=== PATIENT | female | born 1975 | race Caucasian/White ===

== ENCOUNTER 2023-04-26 01:21 | Emergency (ER) | payer MEDICAID ==
[~2023-04-26] VITALS: Ht 165.1 cm; Wt 119.1 kg
[~2023-04-26 01:21] MED LIST: BUPR-319 PO; DESO1TAB71 PO; ESCI20TA17 PO; HYDR-3965 PO; LEVO125T PO; TRAZ-251 PO
[2023-04-26 01:44] VITALS: TEMP 98.7
--- NOTE | 2023-04-26 01:57 | NUR ---
pt states " i dont need a doctor i just need a bed to lie down in".
[2023-04-26] MEDS ORDERED: morphine 4 MG/ML inj SYRINge IV ONE ×3 (03:25→13:10)
[2023-04-26] MEDS ORDERED: LIDOcaine/PRILOcaine 5gm cream TP ONE ×2 (03:25→05:05)
[2023-04-26] MEDS ORDERED: ketorolac trometh. 30mg/ml inj. IV ONE (03:25)
[2023-04-26] MEDS ORDERED: ondansetron/PF 4mg/2ml inj IV ONE (03:25)
[2023-04-26] MEDS ORDERED: iohexol 300mg/ml 100ml inj. ONE (04:12)
[2023-04-26 05:09] LABS: MEAN CORPUSCULAR HEMOGLOBIN 28.2 PG (27.0-31.0)
[2023-04-26 05:11] LABS: BASOPHILS % (AUTO) 0 % (0-1); EOSINOPHILS % (AUTO) 0 % (0-6); HEMATOCRIT 30.4 % (35.0-45.0); HEMOGLOBIN 10.1 g/dl (12.0-16.0); LYMPHOCYTES # (AUTO) 1.5 X10'3 (1.1-4.8); LYMPHOCYTES % (AUTO) 15.6 % (21-51); MEAN CORPUSCULAR HGB CONC 33.3 g/dL (33.0-36.5); MEAN CORPUSCULAR VOLUME 84.6 FL (78-98); MONOCYTES # (AUTO) 1.4 X10'3 (0-0.9); MONOCYTES % (AUTO) 14.4 % (2-12); NEUTROPHILS # (AUTO) 6.6 X10'3 (1.8-7.7); PLATELET COUNT 325 X10'3 (140-440); RED BLOOD COUNT 3.59 X10'6 (4.20-5.60); RED CELL DISTRIBUTION WIDTH 14.6 % (11.5-14.5); WHITE BLOOD COUNT 9.4 X10'3 (4.5-11.0)
[2023-04-26] MEDS ORDERED: ketoconazole 2% cream 15gm TP ONE (05:30)
[2023-04-26 05:35] LABS: ALANINE AMINOTRANSFERASE 24 U/L (12-78); ALBUMIN 2.3 G/DL (3.4-5.0); ALBUMIN/GLOBULIN RATIO 0.5 (1.1-1.5); ALKALINE PHOSPHATASE 99 IU/L (46-116); ANION GAP 10 (8-16); ASPARTATE AMINO TRANSFERASE 24 U/L (10-37); BILIRUBIN,TOTAL 0.5 MG/DL (0.1-1.0); BLOOD UREA NITROGEN 11 MG/DL (7-18); BUN/CREATININE RATIO 13.9 (10.0-20.0); CHLORIDE 105 MMOL/L (99-107); CREATININE 0.79 MG/DL (0.40-0.90); GLUCOSE 94 MG/DL (70-104); MAGNESIUM 1.9 MG/DL (1.5-2.4); POTASSIUM 3.4 MMOL/L (3.5-5.1); SODIUM 137 MMOL/L (135-145); TOTAL CARBON DIOXIDE 21.8 MMOL/L (24-32); TOTAL PROTEIN 6.7 G/DL (6.4-8.2); eCRCL 78 ML/MIN; eGFR 77 ML/MIN
[2023-04-26] MEDS ORDERED: normal saline 1000ml 1,000 ML IV ONE (05:35)
[2023-04-26] MEDS ORDERED: fluconazole 100mg tablet PO ONE (05:35)
[2023-04-26] MEDS ORDERED: LidoCAINE 2% Topical Jelly 11mL syringe TOP ONE (05:40)
[2023-04-26] MEDS ORDERED: LORazepam 2 mg/ml vial IV ONE (05:40)
[2023-04-26] MEDS ORDERED: HYDR-3965 PO (06:14)
[2023-04-26] MEDS ORDERED: NYST30CR34 TP (06:14)
--- NOTE | 2023-04-26 09:33 | NUR ---
SIGNIFICANT OTHER, CAROL. MURPHY CELL:
[2023-04-26] MEDS ORDERED: LORazepam 1 MG tablet PO ONE (09:40)
--- NOTE | 2023-04-26 10:32 | NUR ---
Wound Care consult faxed. nurse, chico Crandall. Patient in extreme pain and tearful with movement. Ativan and Morphine given. Will continue to monitor.
--- NOTE | 2023-04-26 12:32 | NUR ---
PATIENT UNABLE TO VOID INDEPENDENTLY STATING, "IT JUST SUAZO SO BAD, I WON'T PEE. YOU'LL HAVE TO PUT A TUBE IN IF YOU WANT ME TO PEE". ATTEMPTED BENOIT PLACEMENT WITH SILVER PLATER AFTER THIS, BUT UNABLE TO PLACE BENOIT DUE TO DIFFICULT ANATOMY AND OBSTRUCTED FEILD OF VISION. PT ALSO NOT TOLERATING PROCEDURE DESPITE PREMEDICATION. MD AWARE.
[2023-04-26] MEDS ORDERED: piperacillin/tazo 4.5gm/100ml 100 ML IV ONE (14:14)
[2023-04-26] MEDS ORDERED: NYSTATIN 30 GM POWDER TP SCH (14:24)
[2023-04-26] MEDS ORDERED: nystatin 15 GM powder TP SCH (14:26)
[2023-04-26 14:51] LABS: BILIRUBIN,URINE NEGATIVE (Neg); CLARITY,URINE CLOUDY (Clear); COLOR,URINE YELLOW (Yellow); GLUCOSE, URINE NEGATIVE (Neg); KETONES,URINE TRACE mg/dl (Neg); LEUKOCYTE ESTERASE ,URINE TRACE (Neg); OCCULT BLOOD,URINE SMALL (Neg); PROTEIN,URINE TRACE mg/dl (Neg)
[2023-04-26 14:56] LABS: URINE HCG NEGATIVE (NEG)
[2023-04-26 14:57] LABS: NITRITES, URINE NEGATIVE (Neg); UA COLLECTION TYPE CLN CATCH MIDSTREAM
[2023-04-26 14:58] LABS: SQUAMOUS EPITHELIAL CELL,UR MANY /LPF (FEW); WBC,URINE TNTC /HPF (0-4)
[2023-04-26 14:59] LABS: RBC,URINE 20-50 /HPF (0-2)
[2023-04-26 15:00] LABS: BACTERIA,URINE 2+ /HPF (Neg); TRANSITIONAL EPI CELLS,URINE MODERATE /HPF; WBC CLUMPS,URINE MANY /HPF (NEGATIVE)
--- NOTE | 2023-04-26 15:38 | NUR ---
[facility] assessment to assess bridgette to perineal area. Pt is noted to be somewhat obese and post LTKR. States that she was off of her "hot flash" medications and was sweating alot and developed bridgette infection for which she had been using monitstate cream for. Noted her labia, her upper inner thighs, and biateral groin to have severe skin redness and sloughing w/ strong odor and is very painful to touch. She agreed to assessment and then agreed to get OOB w/ 2 person assistance after allowing her vagina and labia to be cleansed gently. UA obtained and RN sent. Spoke with MD and recommended nystatin powder and some calazime cream thin layer to groin area, placing nystatin powder to the rest of the perineum. Also provided cut to fit medline dry sheets to her groin with instruction on how to use at home. Also recommended that she lay w/ legs apart and take meds as ordered and keep her perineal area clean and dry. She verbalized understanding. Report to MD and RN. Bed left in low position in ER.
[2023-04-26] MEDS ORDERED: FLUC200T PO (15:56)
[2023-04-26 19:00] VITALS: BP 155/87; PULSE 104; RESP 20; O2SAT 97
== END 2023-04-26 19:04 | disposition home or self-care (01) ==
LOC: ER 01:21
DX: B35.6 Tinea cruris (principal)
CPT/HCPCS: 36415; 72193; 80053; 81001; 81025; 83605; 83735; 84145; 85025; 87040; 96361; 96374; 96375; 96376; 99285; C1758; J1885; J2060; J2270; J2405; J3490; J7030; Q9967